=== PATIENT | female | born 1975 | race Caucasian/White ===

== ENCOUNTER 2018-11-08 19:03 | Outpatient (CLI) | payer BC ==
--- NOTE | 2018-11-10 09:28 | Ultrasound Report ---
Reason: NON TOXIC MULTINODULAR GOITER Procedure Date: 11/08/2018 Accession Number: [id number] / [id number] Procedure: US - Head or Neck Soft Tissue CPT Code: FULL RESULT: EXAM: THYROID ULTRASOUND EXAM DATE: 11/08/2018 07:40 PM. CLINICAL HISTORY: Non-toxic multinodular goiter. COMPARISON: None. TECHNIQUE: Real time sonographic imaging of the thyroid was performed by the reimbursement counselor. Multiple digital sales representative static images were saved for review. FINDINGS: THYROID GLAND: Right Lobe: 3.7 x 1.6 x 1.3 cm, volume 3.6 cc. Heterogeneous background echotexture. Right Lobe Nodules: Hypoechoic solid mass with irregular margins measuring 5 x 3 x 2 mm anterior mid upper thyroid; circumscribed hyperechoic nonshadowing 4 mm nodule in the central mid gland. Left Lobe: 4 x 1.5 x 1.3 cm, volume 3.5 cc. Heterogeneous echotexture. Left Lobe Nodules: Hypoechoic irregular margin avascular 9 x 2 x 6 mm nodule of the anterior mid lower pole; mixed hypo-and hyperechoic nonshadowing 6 x 4 x 4 mm nodule of the posteromedial mid gland. Isthmus: 0.3 cm AP. Isthmic Nodules: Circumscribed solid isoechoic 5 mm oval nodule. LYMPH NODES: No adenopathy demonstrated in the central or lateral compartment. OTHER: None. IMPRESSION: 1. High suspicion 9 mm irregular nodule in the anterior left mid thyroid lobe. Per provided history, patient has had 2 fine-needle aspirations of the left thyroid gland, comparison imaging and histology unavailable at the time of this dictation. This finding meets the criteria for FNA; if comparison imaging cannot be obtained, consider ultrasound-guided FNA. 2. High suspicion 5 mm right thyroid nodule does not meet size criteria for FNA. Recommend imaging surveillance. Management recommendations are based on 2015 [place] [employer] Management Guidelines for Adult Patients with Thyroid Nodules and Differentiated Thyroid Cancer. RADIA
== END 2018-11-08 19:04 | disposition home or self-care (01) ==
LOC: DI 19:03
PROVIDERS: ATTEND Physician Assistant
DX: E04.2 Nontoxic multinodular goiter (principal)
CPT/HCPCS: 76536

== ENCOUNTER 2018-11-09 12:37 | Outpatient (CLI) | payer BC ==
[2018-11-09 14:02] LABS: THYROID STIMULATING HORMONE 0.98 uIU/mL (0.34-5.60)
[2018-11-09 14:06] LABS: FREE T4 (FREE THYROXINE) 0.85 ng/dL (0.58-1.64)
== END 2018-11-09 12:38 | disposition home or self-care (01) ==
LOC: LAB 12:37
PROVIDERS: ATTEND Physician Assistant
DX: E06.3 Autoimmune thyroiditis (principal)
CPT/HCPCS: 36415; 84439; 84443; 84480

== ENCOUNTER 2019-05-10 14:13 | Emergency (ER) | payer BC ==
[2019-05-10 15:03] LABS: BASOPHILS # (AUTO) 0.1 10^3/uL (0.0-0.1); BASOPHILS % (AUTO) 1.3 %; EOSINOPHILS # (AUTO) 0.4 10^3/uL (0.0-0.7); EOSINOPHILS % (AUTO) 7.6 %; HGB - HEMOGLOBIN 13.1 g/dL (12.0-16.0); LYMPHOCYTES # (AUTO) 1.6 10^3/uL (1.5-3.5); LYMPHOCYTES % (AUTO) 30.8 %; MEAN CORPUSCULAR HEMOGLOBIN 32.6 pg (27.0-31.0); MEAN CORPUSCULAR HGB CONC 33.8 g/dL (32.0-36.0); MEAN CORPUSCULAR VOLUME 96.5 fL (81.0-99.0); MEAN PLATELET VOLUME 8.4 fL (7.9-10.8); MONOCYTES # (AUTO) 0.5 10^3/uL (0.0-1.0); MONOCYTES % (AUTO) 8.7 %; NEUTROPHILS # (AUTO) 2.7 10^3/uL (1.5-6.6); NEUTROPHILS % (AUTO) 51.4 %; PLT - PLATELET COUNT 336 10^3/uL (130-450); RED BLOOD COUNT 4.02 10^6/uL (4.20-5.40); RED CELL DISTRIBUTION WIDTH 12.5 % (12.0-15.0); WHITE BLOOD COUNT 5.3 x10^3/uL (4.8-10.8)
[2019-05-10 15:19] LABS: ALBUMIN 4.9 g/dL (3.2-5.5); ALBUMIN/GLOBULIN RATIO 1.8 (1.0-2.2); BILIRUBIN,TOTAL 0.7 mg/dL (0.2-1.0); CALCIUM 9.3 mg/dL (8.5-10.3); CREATININE 0.8 mg/dL (0.4-1.0); TOTAL PROTEIN 7.6 g/dL (6.7-8.2)
[2019-05-10] MEDS ORDERED: ONDANSETRON ODT 4 MG TABLET TL STA (15:56)
[2019-05-10] MEDS ORDERED: NAPROXEN 250 MG TABLET PO STA (15:56)
--- NOTE | 2019-05-10 16:00 | ED Physician Documentation ---
PD HPI NVD - Stated complaint Stated Complaint: NAUSEA/DIZZY/BOSCH - Chief complaint Chief Complaint: General - History obtained from History obtained from: Patient - History of Present Illness Timing - onset: How many weeks ago (has had intermittent headache, nausea, lightheaded for 1-2 weeks or so. with similar symptoms the past week but not as much. No fever nor URI symptoms. Today, they had a CO detector alarm downstairs and the fire dept came and found high CO levels, mostly focused in laundry room around the dryer. Patient is having appliance repair come out and the dryer is unplugged. They say the townhouse heat is electric. dryer and water heater are gas. No other CO sources in house.) Timing - duration: Weeks Timing - details: Gradual onset, Waxing and waning Associated symptoms: No: Fever, Abdominal pain, Near syncope / syncope Contributing factors: No: Sick contact, Bad food, Travel Worsened by: Other (jogging/exercise) Similar symptoms before: Has not had sx before Review of Systems Constitutional: reports: Myalgias, Fatigue. denies: Fever, Chills Nose: denies: Rhinorrhea / runny nose, Congestion Throat: denies: Sore throat Respiratory: denies: Cough Skin: denies: Rash, Lesions Neurologic: reports: Confused (feeling not as focused and sharp as usual the past 2-3 weeks), Headache. denies: Altered mental status PD PAST MEDICAL HISTORY - Past Medical History Cardiovascular: None Respiratory: None Neuro: None Endocrine/Autoimmune: None - Present Medications Home Medications: Ambulatory Orders Medication Instructions Recorded Confirmed Naproxen 500 mg PO BID #20 tablet 05/10/19 Ondansetron Odt [Zofran] 4 mg TL Q6H PRN #15 tablet 05/10/19 - Allergies Allergies/Adverse Reactions: Allergies Allergy/AdvReac Type Severity Reaction Status Date / Time No Known Drug Allergies Allergy Verified 05/10/19 14:21 - Living Situation Living Situation: reports: With spouse/s.o. Living Arrangement: reports: At home, Other (works out of house so it at home most of the time) - Social History Does the pt smoke?: No Does the pt have substance abuse?: No Results - Vitals Vitals: Vital Signs - 24 hr 05/10/19 05/10/19 05/10/19 14:21 16:11 16:17 Temperature 36.5 C 36.6 C 36.7 C Heart Rate 76 71 71 Respiratory 16 16 16 Rate Blood Pressure 131/83 H 95/84 H 95/84 H O2 Saturation 100 100 100 Oxygen O2 Source Room air Oxygen Flow Rate 15 - Labs Labs: Laboratory Tests 05/10/19 05/10/19 05/10/19 14:50 14:50 14:50 WBC 5.3 RBC 4.02 L Hgb 13.1 Hct 38.8 MCV 96.5 MCH 32.6 H MCHC 33.8 RDW 12.5 Plt Count 336 MPV 8.4 Neut # (Auto) 2.7 Lymph # (Auto) 1.6 Piute # (Auto) 0.5 Eos # (Auto) 0.4 Baso # (Auto) 0.1 Absolute Nucleated RBC 0.00 Nucleated RBC % 0.0 VBG Total Hgb 14.0 VBG Oxyhemoglobin 66 L VBG Carboxyhemoglobin 3.0 H VBG Methemoglobin 0.2 Sodium 137 Potassium 3.9 Chloride 102 Carbon Dioxide 26 Anion Gap 9.0 BUN 22 H Creatinine 0.8 Estimated GFR (MDRD) 78 L Glucose 96 Calcium 9.3 Total Bilirubin 0.7 AST 20 ALT 16 Alkaline Phosphatase 41 L Total Protein 7.6 Albumin 4.9 Globulin 2.7 Albumin/Globulin Ratio 1.8 Lipase 28 PD MEDICAL DECISION MAKING - ED course Complexity details: considered differential (symptoms sound like CO poisoning and does not have viral /URI symptoms per se otherwise. 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 Referenced UpToDate and would not be indication for more aggressive treatment such as HBO.), d/w patient Departure - Departure Disposition: 01 Home, Self Care Clinical Impression: Nausea Headache Qualifiers: Headache type: unspecified Headache chronicity pattern: unspecified pattern Intractability: not intractable Qualified Code(s): R51 - Headache Carbon monoxide poisoning Qualifiers: Encounter type: initial encounter Injury intent: accidental or unintentional Qualified Code(s): T58.91XA - Toxic effect of carbon monoxide from unspecified source, accidental (unintentional), initial encounter Condition: Stable Record reviewed to determine appropriate education?: Yes Instructions: ED CO Poisoning Follow-Up: Goldie Corey PA [Primary Care Provider] - Prescriptions: Naproxen 500 mg PO BID #20 tablet Ondansetron Odt [Zofran] 4 mg TL Q6H PRN #15 tablet PRN Reason: Nausea / Vomiting Comments: Your carbon monoxide level was still in the normal range at 3 though you can get carbon monoxide poisoning symptoms add a much lower dose if it is chronic (for example over weeks or so). The treatment for this would be prevent further exposure to the carbon monoxide of course. The symptoms of the headaches and nausea may take several days or week to trend down with a more chronic exposure but should gradually improve. O dancer and if needed for nausea. Use naproxen anti-inflammatory twice daily for a week to 10 days to help with some of the symptoms as well. Recheck if not improving well over the next couple of days and resolved within a week. Discharge Date/Time: 05/10/19 16:28
[2019-05-10 16:15] VITALS: BP 95/84
== END 2019-05-10 16:28 | disposition home or self-care (01) ==
LOC: ED 14:13
DX: R51 Headache (principal); R42 Dizziness and giddiness; R11.0 Nausea; T58.91XA Toxic effect of carbon monoxide from unspecified source, accidental (unintentional), initial encounter
CPT/HCPCS: 36415; 80053; 82375; 83690; 85025; 99283; 99284; A9270; Q0162